=== PATIENT | male | born 1940 | race Caucasian/White ===

== ENCOUNTER 2016-11-25 13:07 | Inpatient (IN) | payer MEDICARE, BC ==
[~2016-11-25] VITALS: Ht 182.9 cm; Wt 73.2 kg
--- NOTE | ~2016-11-25 | ECHO ---
Transthoracic Echocardiography Report (TTE) Demographics Patient Name GAL TOLEDO Date of Study 11/26/2016 Patient Number [id number] Visit Number [id number] Date of 1940 Room Number G6229 Accession Number [id number] Gender Male Age 76 year(s) Referring Nupur Queen MD Dinkey Engineer Jaylin Lopez [facility], Physician RVT Physician Interpreting Gage Horvath Keeper Head Physician Supervising Ordering Physician Nupur Crews MD/MLP Nurse Stress Game Show Host Conclusions Contractility Score Summary At rest the following contractility abnormalities were noted: Hypokinesis of the Mid anterior, the Mid lainey-septal, the Basal lainey-septal, the Apical anterior and the Apical cap segments. Contractility of all other segments appeared normal. Summary The estimated left ventricular ejection fraction is 45-50% with normal internal dimensions and wall thickness.Septum is thinned and severely hypokinetic. Mildly dilated right ventricle. The right atrium is mildly dilated. Mild mitral regurgitation by color Doppler. The aortic valve is moderately sclerotic. There is trivial aortic regurgitation by color Doppler. Mild-moderate tricuspid regurgitation by color Doppler. There is moderate pulmonary hypertension. The pulmonary pressure (RVSP) is 49 mmHg. Mild pulmonic valve regurgitation by color Doppler. The pulmonic valve is not well visualized. Procedure Type of Study TTE procedure:2D Echocardiogram. Procedure Date Date: 11/26/2016 Start: 06:51 AM Study Location: Inpatient Portable Technical Quality: Fair due to lung interference. Indications:Acute Heart Failure. Appropriate Use Criteria: 9 Patient Status: Routine Rhythm: Sinus tachycardia HR: 100 bpm BP: 133/61 mmHg M-Mode/2D Measurements LV Diastolic Dimension: 5.2 cm LV Systolic Dimension: 4.28 cm LV Septum Diastolic: 0.87 cm LV Septum Systolic: 5.33 cm LV PW Diastolic: 0.99 cm AO Root Dimension: 1.8 cm Cardiac Output: 8.14 l/min LA Dimension: 3.9 cm LVOT: 2.1 cm IVC Inspiration: 1.23 cm LVOT VTI: 23.5 cm RV Base: 4.47 cm LV Stroke volume: 81.35 ml RV Length: 7.88 cm TAPSE: 2.03 cm Doppler Measurements AV Peak Velocity: 1.93 m/s MV Peak E-Wave: 1.12 m/s AV Peak Gradient: 14.9 mmHg MV Peak A-Wave: 1.36 m/s AV Mean Gradient: 6 mmHg MV E/A Ratio: 0.82 LVOT Peak Velocity: 1.34 m/s MV P1/2t: 60 msec TR Gradient:46.51 mmHg Estimated RAP:3 mmHg Estimated PASP: 49.51 mmHg Estimated RVSP: 50 mmHg A' Septal Velocity: 0.12 m/s E' Septal Velocity: 0.08 m/s A' Lateral Velocity: 0.13 m/s E' Lateral Velocity: 0.06 m/s MV E/E' Ratio: 13.6 Findings Left Ventricle The estimated left ventricular ejection fraction is 45-50% with normal internal dimensions and wall thickness.Septum appears thinned and severely hypokinetic. Right Ventricle Mildly dilated right ventricle. Left Atrium Normal left atrial size. Right Atrium The right atrium is mildly dilated. Mitral Valve Mild mitral regurgitation by color Doppler. Aortic Valve The aortic valve is moderately sclerotic. There is trivial aortic regurgitation by color Doppler. Tricuspid Valve Mild-moderate tricuspid regurgitation by color Doppler. There is moderate pulmonary hypertension. The pulmonary pressure (RVSP) is 49 mmHg. Pulmonic Valve Mild pulmonic valve regurgitation by color Doppler. The pulmonic valve is not well visualized. Pericardial Effusion No evidence of pericardial effusion. Miscellaneous Visualized portions of the aortic root and ascending aorta appear normal in size. Pleural Effusion No evidence of pleural effusion. Contractility Score LV regional wall motion:(0-Non visualized 1-Normal 2-Hypokinesis 3-Akinesis 4-Dyskinesis 5-Aneurysm) Signature dtt: Yuliet Almonte dtd: 11/26/16 0651 Physician Self Edit
--- NOTE | ~2016-11-25 | ECHO ---
Transesophageal Echocardiography Report (JETT) Demographics Patient Name GAL TOLEDO Date of Study 11/30/2016 Patient Number [id number] Visit Number [id number] Date of 1940 Room Number [id number] Gender Male Number Age 76 year(s) Referring [facility] Pediatric Surgeon Tonja Edwards RVT, Physician Cecille [facility] Barkot Physician Interpreting Neto Hunter Oral Therapist Physician Supervising Ordering Neto Hunter MD/MLP Physician Nurse Stress Manager Car Conclusions Summary The left ventricle is normal in size . LV systolic function could not be accurately determined as the patient had tachycardia during the study with ventricular rate of 130-140 bpm. Moderately dilated right ventricle. Moderately reduced right ventricular function. There is no obvious LA or LA appendage thrombus or spontaneous contrast. Bubble study was done, rare bubbles crossed to the left atrium suggesting a possible PFO. The right atrium is moderately dilated. Normal mitral valve structure and function. Mild-moderate mitral regurgitation by color Doppler. The aortic valve is mildly sclerotic. Normal appearing tricuspid valve. Mild tricuspid regurgitation by color Doppler. Minimal thoracic aorta plaque. Procedure Type of Study JETT procedure Procedure Date Date: 11/30/2016 Start: 09:40 AM Study Location: Inpatient Portable Technical Quality: Adequate visualization Indications:Atrial fibrillation. Appropriate Use Criteria: 8 Patient Status: Routine Rhythm: Atrial flutter HR: 126 bpm BP: 157/67 mmHg JETT Performed By: the attending and the brokerage office manager Findings Left Ventricle The left ventricle is normal in size . LV systolic function could not be accurately determined as the patient had tachycardia during the study with ventricular rate of 130-140 bpm. Right Ventricle Moderately dilated right ventricle. Moderately reduced right ventricular function. Left Atrium There is no obvious LA or LA appendage thrombus or spontaneous contrast. Bubble study was done, rare bubbles crossed to the left atrium suggesting a possible PFO. Right Atrium The right atrium is moderately dilated. Mitral Valve Normal mitral valve structure and function. Mild-moderate mitral regurgitation by color Doppler. Aortic Valve The aortic valve is mildly sclerotic. Tricuspid Valve Normal appearing tricuspid valve. Mild tricuspid regurgitation by color Doppler. Pulmonic Valve The pulmonic valve is not well visualized. Miscellaneous Minimal thoracic aorta plaque. Signature dtt: EVELIA NELSON dtd: 11/30/16 0940 Physician Self Edit
--- NOTE | ~2016-11-25 | DS ---
PATIENT'S NAME: GAL TOLEDO [facility] AGE: 76 Y [address] ROOM: [id number] [place] [address] LOCATION: GPCU ADMIT DATE: 11/25/2016 Discharge Summary DISCHARGE DATE: 12/05/2016 FAMILY PHYSICIAN: Lona Mills MD ATTENDING PHYSICIAN: Juan José Fulton FINAL DIAGNOSES: 1. Septic shock. 2. Left lower lobe pneumonia. 3. Atrial fibrillation with rapid ventricular response. 4. Acute hypoxic respiratory failure. 5. Non-ST elevation myocardial infarction with 3-vessel coronary artery disease. 6. Diabetes mellitus, type 2, insulin using. 7. Acute systolic congestive heart failure. 8. Essential hypertension. 9. Dyslipidemia. PROCEDURE: DC cardioversion on November 30, JETT on November 30, and heart catheterization on December 04, all by Dr. Duque. BRIEF HISTORY: For details of admission, please see the fully dictated history and physical by Dr. Fulton. In short, the patient was accepted and found to have a septic shock. He had presented the day prior with increasing cough, weakness, and fever. On arrival here, it was felt that he had a left lower lobe pneumonia and he was septic, he was admitted into the intensive care unit. LABORATORY DATA: On admission, sodium 136, remained stable at discharge 134; potassium on admission was 4.4, got as high as 5.2 on the 10th, as low as 3.4 on the 15th, at discharge 5.1; chloride on admission was 103, discharge 104; BUN on admission was 27, remained relatively stable, was 24 at discharge; creatinine on admission was 1.6, did decline in the first 2 days of admission, most prior to discharge it was 0.8. His AST on admission was 16 and bumped up to 440, most prior to discharge 29; ALT on admission was 15, jumped up to 232, most prior to discharge it was 80; cholesterol was 95; triglycerides 107; HDL 25; LDL 49. Troponin on admission was 1.8, second hospital day 0.73. ProBNP on admission was 8365. Hemoglobin A1c was 8.6. White blood cell count on admission was 16.1, got as high as 19.3, at discharge 13.8; hemoglobin on admission was 11.2, did drop to 9.8, and most prior to discharge it was 12; platelet count on admission was 212, remained stable, was 390 at discharge. Procalcitonin on admission was 28.94, on the 27 of November it was 16.09. MICROBIOLOGY DATA: All cultures were negative. PATIENT'S NAME: GAL TOLEDO [facility] AGE: 76 Y [address] ROOM: [place] [address] LOCATION: GPCU ADMIT DATE: 11/25/2016 Discharge Summary DISCHARGE DATE: 12/05/2016 FAMILY PHYSICIAN: Lona Mills MD ATTENDING PHYSICIAN: Juan José Fulton X-RAY DATA: Chest x-ray on admission showed that he had diffuse reticular opacity in both lungs, it was worse in the mid and lower sections and worse on the left. He had pleural thickening. On the second hospital day, the chest x- ray did show some worsening. On the , the chest x-ray did show improvement, there was improvement in the left lower lobe pneumonia. Chest x- ray done on the day of discharge showed that the consolidation was markedly improved and that he did have chronic emphysema and fibrotic changes and question whether this is the picture consistent with asbestos exposure. CARDIOVASCULAR DATA: Echocardiogram done on admission showed his ejection fraction to be 45-50%. He had mildly dilated right ventricle, moderate pulmonary hypertension. JETT done by Dr. Duque did not show any left atrial appendage clot. HOSPITAL COURSE: The patient was admitted from [facility] with a diagnosis of septic shock. He did have a left lower lobe pneumonia. The patient was admitted into an intensive care unit. He was started on vancomycin, Levaquin, and Zosyn. He was given Levophed for blood pressure support and was given IV fluid boluses. His ABGs were monitored. It was felt that he was acidotic. His lactate was significantly elevated. An echocardiogram was obtained. His lactates were elevated and they were followed closely. He also was found to have an acute hypoxic respiratory failure, he did require oxygen. He did have acute kidney injury, which did improve with IV hydration. It was felt that he was stable for discharge and he was able to be discharged out of the intensive care unit. He did go into atrial fibrillation with a rapid ventricular response on November 27. At that time, he was covered with Eliquis and given doses of Lopressor, Cardiology was consulted at that time. They did put him on a Cardizem drip and increased his oral metoprolol doses. It was also felt that he needed fasting lipids, there was some concern because of his cardiac enzymes being elevated that he did in fact have a non-STEMI. He was taken off the Eliquis and put on Lopressor. Adjustments were made in his medications to try and control his blood sugars. His heart rates were very difficult to control and did not come under control. The decision was made to do a JETT on the morning of the and then cardiovert him if possible. The JETT did not show any left atrial clot and therefore he was cardioverted. He was still requiring 2 L of oxygen. It was felt that he had significant degree of congestive heart failure and was started on IV Lasix. Carb count with meals was added. The decision was made that he did need to have a heart catheterization. We did work to optimize him. He responded very nicely to the diuretic. We did start him on potassium. His antibiotic was converted to oral Levaquin. He progressed nicely, his oxygen was weaning, and he was having significant urine output. We did make adjustments in his diabetic medications. He did undergo a heart catheterization on the , it did show that he had triple-vessel disease, please see Dr. Duque's catheterization note for full details. The patient was seen by Dr. Valdovinos for cardiothoracic PATIENT'S NAME: GAL TOLEDO [facility] AGE: 76 Y [address] ROOM: [place] [address] LOCATION: GPCU ADMIT DATE: 11/25/2016 Discharge Summary DISCHARGE DATE: 12/05/2016 FAMILY PHYSICIAN: oLna Mills MD ATTENDING PHYSICIAN: Juan José Fulton consult, at that time Dr. Valdovinos felt that he needed to be optimized. A CT scan was done of the chest to evaluate because of the concern of fibrosis. This was done on the day of discharge. It was felt that the patient was stable for discharge and could be discharged to home with followup. He is to have a diabetic diet. 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 Arrangements were made for appointment with Dr. Caputo, Dr. Duque, and Dr. Lona Mills in [place]. Those appointments will be made by the nurse coordinator for the hospitalist program and called to the family on Wednesday. He is advised to check his sugars 4 times daily. DISCHARGE MEDICATIONS: 1. Aspirin 81 mg daily. 2. NovoLog mild sliding scale. 3. Insulin 40 units subcutaneous at bedtime. 4. Levaquin 750 mg, stop date December 08. 5. Prinivil 10 mg at bedtime. 6. Magnesium oxide 400 mg twice daily. 7. Lopressor 50 mg twice daily. 8. Calcium 500 mg twice daily. 9. Glucophage 1000 mg twice daily. 10. Simvastatin 10 mg. 11. NovoLog 10 units subcutaneous 3 times daily with meals. 12. Nitrostat 0.4 mg sublingual, chest pain, may repeat q.5 minutes for a total of 3, if he takes 30, he is advised to go to the ER. I did spend a significant amount of time discussing with him and his , talked about diabetic diet. We did also talk with him about possibly getting in with a personal development educator in [place]. JESSICA YEPEZ MD LAW/modl /[id number] d: 12/05/162038 t: 12/06/161626, DISCHARGE SUMMARY
--- NOTE | ~2016-11-25 | OR ---
PATIENT'S NAME: GAL TOLEDO [facility] AGE: 76 Y [address] ROOM: [address] [address] LOCATION: CU ADMIT DATE: 11/25/2016 OR/Procedure Report DISCHARGE DATE: FAMILY PHYSICIAN: Lona Mills MD ATTENDING PHYSICIAN: Juan José Fulton SURGEON: Elsa Duque MD PROTECTION AGENT: DATE OF PROCEDURE: 11/30/2016 PROCEDURE: JETT cardioversion. INDICATION: Atrial flutter with rapid ventricular rate. The procedure was described to the patient and family and informed consent was obtained. DESCRIPTION OF PROCEDURE: The JETT was performed under general anesthesia. No obvious left atrial appendage thrombus was seen. The patient was then cardioverted using 100 joules of DC shock in the anterior posterior defibrillator pad position with one single shock. His heart rate was about 140 beats per minute with the atrial flutter prior to cardioversion and post cardioversion, his heart rate was 90 beats per minute. His blood pressure was 92/60 mmHg. The patient tolerated the procedure well. No immediate complication was seen. The JETT findings will be reported separately. MD MACKENZIE COLVIN/quyen /[id number] d: 11/30/16 1140 t: 12/10/16 1039, OPERATIVE SUMMARY
--- NOTE | ~2016-11-25 | HP ---
PATIENT'S NAME: GAL TOLEDO [facility] AGE: 76 Y [address] ROOM: [place] [address] LOCATION: [facility] ADMIT DATE: 11/25/2016 History & Physical DISCHARGE DATE: FAMILY PHYSICIAN: PHYSICIAN, UNKNOWN ATTENDING PHYSICIAN: DIONI DEMARCO DATE OF SERVICE: CHIEF COMPLAINT: Severe sepsis with shock, pneumonia. HISTORY OF RESENT ILLNESS: This is a 76-year-old male with history of diabetes, who presented to the emergency room at [place] yesterday and was subsequently admitted after he presented there with a few days history of complaints of increasing cough, generalized weakness, and fever. The patient was subsequently evaluated, and he was noted to have pneumonia and was admitted there. The patient this morning upon evaluation by the rounding physician was found to be hypertensive and decompensating and was subsequently transferred here for escalation of care. The patient tells me that he had not been feeling well for the past week or so, where he thought he had flu-like symptoms and had a cough that was initially dry and later it became productions of yellow-green sputum. He also complained of subjective and objective fever at the same time as well. Also, complained of some nausea and diarrhea with this. Also, complains of some dizziness and lightheadedness when he was getting up from a seated position, but that felt better when lying down. The patient, otherwise, denies any chest pain and significant shortness of breath that are related to this. PAST MEDICAL HISTORY: 1. Type 2 diabetes. 2. Hypertension. 3. Hyperlipidemia. SOCIAL HISTORY: The patient has a remote history of smoking and has quit in 2004. Denies any alcohol or drug use. FAMILY HISTORY: The patient has a history of diabetes in his parents and brothers. REVIEW OF SYSTEMS: All systems have been reviewed and were all negative, except as described in the HPI. PHYSICAL EXAMINATION: PATIENT'S NAME: GAL TOLEDO [facility] AGE: 76 Y [address] ROOM: [place] [address] LOCATION: [facility] ADMIT DATE: 11/25/2016 History & Physical DISCHARGE DATE: FAMILY PHYSICIAN: PHYSICIAN, UNKNOWN ATTENDING PHYSICIAN: DIONI DEMARCO VITAL SIGNS: Temperature max of 103, blood pressure 94/43, heart rate 70, respiratory rate 18, saturating 92% on 3 L of oxygen. GENERAL: The patient is awake, alert, and oriented x3; in mild distress and lethargic. HEENT: Dry mucosal membranes, but no scleral icterus or conjunctival pallor noted. SKIN: Without rash or lesions. CHEST: Diminished breath sounds in the left lower lobe. Mild rhonchi in that region as well. HEART: S1, S2. Regular rate and rhythm. ABDOMEN: Soft, nontender, and nondistended with positive bowel sounds. MUSCULOSKELETAL: No joint effusions, erythema, or tenderness noted NEUROLOGIC: Grossly nonfocal. LABORATORY DATA: Significant labs from outside hospital: White count of 13,000. ASSESSMENT AND PLAN: 1. Severe sepsis or shock, secondary to pneumonia. The patient is from the community. We will cover with broad-spectrum antibiotics with vancomycin, Levaquin, and Zosyn. He does have some gastrointestinal symptoms. We will check for even Legionella and check for MRSA in nares to help narrow antibiotics going forward once we get sputum culture as well. The patient had received 2 L of saline boluses on his way here, I am giving him a third liter which would be equivalent to 30 mL/kg for initial volume resuscitation. We will get a repeat lactate level in 3 hours and re-assess the patient's volume status as well. The patient is on Levophed at 0.5 mg, and we will continue with fluid boluses and resuscitation and slowly wean Levophed off in the coming days. 2. Pneumonia, bacterial, organism unspecified. Management as above with broad-spectrum antibiotics, and we will continue to monitor clinically. 3. Acute respiratory failure with hypoxia. This is due to his pneumonia as well and management is as described above. 4. Acute kidney injury. This is related to sepsis picture as well. We will go ahead and manage with fluid resuscitation and keep an eye on urine output and kidney function overall. 5. Type 2 diabetes. The patient is on metformin at home. We will hold this and use sliding scale insulin, and he will be monitored. 6. Essential hypertension. The patient is on lisinopril. We will hold blood pressure lowering medications in the setting of a sepsis picture at this point. 7. Hyperlipidemia. Continue statin therapy. 8. Deep venous thrombosis prophylaxis. We will use subcu heparin. PATIENT'S NAME: GAL TOLEDO [facility] AGE: 76 Y [address] ROOM: [address] [address] LOCATION: [facility] ADMIT DATE: 11/25/2016 History & Physical DISCHARGE DATE: FAMILY PHYSICIAN: PHYSICIAN, CHARLINE ATTENDING PHYSICIAN: DIONI DEMARCO MD YANNICK PERDUE/quyen /[id number]: [id number] T: [id number] HISTORY & PHYSICAL
--- NOTE | ~2016-11-25 | CON ---
PATIENT'S NAME: GAL TOLEDO [facility] AGE: 76 Y [address] ROOM: [place] [address] LOCATION: GPCU ADMIT DATE: 11/25/2016 Consultation DISCHARGE DATE: 12/05/2016 FAMILY PHYSICIAN: Lona Mills MD ATTENDING PHYSICIAN: Juan José Fulton DATE OF CONSULTATION: 12/04/2016 REFERRING PHYSICIAN: Johnny Valdovinos MD REQUESTING PHYSICIAN: Dr. Duque. REASON FOR CONSULTATION: Multivessel coronary artery disease. HISTORY OF PRESENT ILLNESS: The patient is a 76-year-old white male, from [place], [place] who was transferred here for a higher level of care and admitted with septic shock, acute hypoxic respiratory failure with findings of a left lower lobe pneumonia. He was placed in the ICU. He was stabilized hemodynamically and was placed on a Levophed drip. He had complications with atrial fibrillation with rapid ventricular response. He was seen by Cardiology as well. Further cardiac workup revealed a non-STEMI. The patient underwent a cardioversion on November 30, 2016. The patient further stabilized, having no more fever. The patient did have an echocardiogram with an ejection fraction noted to be at 40% to 45%. The patient did go down on December 04, [address] Duque for a left heart catheterization. Findings of the catheterization revealed no significant left main disease. To the LAD, proximal/mid portion an 80% to 90% diffuse stenosis. The diagonal of the ostial section at 80%. Circumflex proximally at 90%. First marginal, ostially 90% stenosed. To the right system, a mid 80% stenosis and a posterior lateral segment at 80%. Given this, cardiothoracic surgery has been consulted to speak with the patient and his family with regard to surgical revascularization. PAST MEDICAL HISTORY: Illnesses: Diabetes mellitus, dyslipidemia, hypertension, systolic congestive heart failure, peripheral vascular disease. Surgeries/Procedures: Right lower extremity bypass. ALLERGIES: NO KNOWN DRUG ALLERGIES. PATIENT'S NAME: PARIS [facility] AGE: 76 Y [address] ROOM: [place] [address] LOCATION: GPCU ADMIT DATE: 11/25/2016 Consultation DISCHARGE DATE: 12/05/2016 FAMILY PHYSICIAN: Lona Mills MD ATTENDING PHYSICIAN: Juan José Fulton SOCIAL HISTORY: The patient is . He and his reside in [place]. 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 He is a former long-standing smoker. Nonalcohol consumer. FAMILY HISTORY: His mother had history of diabetes. His father had history of diabetes. His daughter underwent a quadruple bypass here recently. CURRENT MEDICATIONS: 1. Metoprolol. 2. Ferrous sulfate. 3. Aspirin. 4. Nexium. 5. Insulin. 6. Simvastatin. 7. Vancomycin. 8. Zofran. 9. Zosyn. 10. Levaquin. REVIEW OF SYSTEMS: At this time, the 10-point review of systems is positive for ongoing back pain, intermittent shortness of breath, and hoarseness of his voice. PHYSICAL EXAMINATION: VITAL SIGNS: Blood pressure 120/59, pulse is 62, respirations 16, temp 98.5, O2 saturations 93% on room air. Weight is 73.2 kg. GENERAL: He is very pleasant. He is in no acute distress. HEENT: Normocephalic. EOMI is intact. He does have hoarseness to his voice. LUNGS: With fine crackles bilaterally, somewhat diminished. CARDIOVASCULAR: Irregular with normal sinus rhythm showing on the monitor. No murmur detected. ABDOMEN: Soft, nontender by 4 quadrants with positive bowel sounds throughout. EXTREMITIES: No overt varicosities or edema noted. He does have bilateral scarring to his lower extremities secondary to prior bypass surgery and retrieval of vein. MUSCULOSKELETAL: Good range of motion to bilateral upper and lower extremities. NEUROLOGIC: Alert and oriented. Strength is symmetrical. SKIN: No suspicious skin lesions. LABORATORY AND TEST RESULTS: His cardiac catheterization and echo are as per HPI. His CT on his admission PATIENT'S NAME: GAL TOLEDO [facility] AGE: 76 Y [address] ROOM: [facility] [place] [place] [address] LOCATION: GPCU ADMIT DATE: 11/25/2016 Consultation DISCHARGE DATE: 12/05/2016 FAMILY PHYSICIAN: Lona Mills MD ATTENDING PHYSICIAN: Juan José Fulton did show left lower lobe consolidation, chronic emphysematous and fibrotic changes. IMPRESSION: 1. Non-ST segment myocardial infarction. 2. Three-vessel coronary artery disease. 3. Left lower lobe pneumonia. 4. Acute kidney injury, resolving. 5. Peripheral vascular disease, status post right lower extremity bypass. 6. Chronic obstructive pulmonary disease/emphysema. 7. 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 8. Type 2 diabetes mellitus. 9. Hypertension. 10. Dyslipidemia. The cardiac catheterization was reviewed. The patient will require 3-4 vessel bypass. Given the patient's recent admission for sepsis with pneumonia and the severity of the patient's CT of the chest from pulmonary fibrotic changes, patient should be walked out for a period of time to optimize pulmonary status before going to surgery. This was discussed with the patient and his . Time frame for estimated surgery likely 4 weeks out, possibly 6. The patient is going to get a repeat CT scan of the chest tomorrow. He will likely be discharged from the hospital and will be seen in followup regarding timing of surgical revascularization surgery. We will plan for followup in approximately 1 week with Pulmonology, Cardiology, and Cardiothoracic Surgery. I would like to thank Dr. Duque for allowing us to participate in the care of this very pleasant gentleman. RANJIT SANDERS APRN FOR MD LIBERTAD MARIN/quyen /[id number] d: 12/08/16 1437 t: 12/09/16 0856, CONSULTATION REPORT
--- NOTE | ~2016-11-25 | CON ---
PATIENT'S NAME: GAL TOLEDO [facility] AGE: 76 Y [address] ROOM: [place] [address] LOCATION: GICU ADMIT DATE: 11/25/2016 Consultation DISCHARGE DATE: FAMILY PHYSICIAN: IVANIA ESTRADA MD ATTENDING PHYSICIAN: DIONI DEMARCO DATE OF CONSULTATION: 11/27/2016 CARDIOLOGY CONSULTATION REFERRING PHYSICIAN: Xiomara Wills MD REASON FOR CONSULTATION: Atrial fibrillation with a rapid ventricular rate and wall-motion abnormalities on echocardiogram. HISTORY OF PRESENT ILLNESS: Mr. Toledo is a pleasant 76-year-old male with history of diabetes who has been symptomatic since two days with complaints of fever. The patient started having flu-like symptoms on Wednesday evening that is two days ago and by midnight, on Wednesday, his temperature was up to 105, EMS was called, and he was taken to local hospital in [place], and subsequently transferred here for higher level of care. The patient has been having cough, generalized weakness, and nausea. He was found to have pneumonia and has been started on antibiotics. The patient had echocardiogram which reported ejection fraction of 40% to 45% with wall-motion abnormalities and was also noted to be in atrial fibrillation with a rapid ventricular rate. The patient denies any palpitations. REVIEW OF SYSTEMS: The patient denied any recent change in vision. History of nausea is present. No history of vomiting. History of fever is present. History of cough and shortness of breath is present. The patient stated he has chronic diarrhea and has been having diarrhea since he has been taking metformin. He also complained of leg pains and leg cramps off and on. Review of other systems is essentially negative. SOCIAL HISTORY: He quit smoking in 2004 and used to smoke about a pack of cigarettes a day. He is a rivas. FAMILY HISTORY: No family history of premature coronary artery disease. PATIENT'S NAME: GAL TOLEDO [facility] AGE: 76 Y [address] ROOM: [place] [address] LOCATION: GICU ADMIT DATE: 11/25/2016 Consultation DISCHARGE DATE: FAMILY PHYSICIAN: IVANIA ESTRADA MD ATTENDING PHYSICIAN: DIONI DEMARCO PAST MEDICAL HISTORY: 1. Diabetes. 2. Hypertension. 3. Hyperlipidemia. PAST SURGICAL HISTORY: The patient stated that he had bypass surgery in the right lower extremity. CURRENT MEDICATIONS: Include: 1. Metoprolol tartrate 25 mg b.i.d. 2. Ferrous sulfate. 3. Aspirin 81 mg daily. 4. Pantoprazole. 5. Insulin. 6. Simvastatin 10 mg at bedtime. 7. Vancomycin. 8. Ondansetron. 9. Piperacillin tazobactam. 10. Levofloxacin. PHYSICAL EXAMINATION: GENERAL APPEARANCE: He is awake, alert, and oriented. VITAL SIGNS: He pulse rate is 133 beats per minute, temperature 98.2, respiratory rate 21, and blood pressure 152/65 mmHg. HEENT: His head is atraumatic and normocephalic. His pupils are equal. His tongue is dry. No significant jugular venous distention is present. CARDIOVASCULAR: S1 and S2 are audible. They are irregular in rate and rhythm. Tachycardia is present. RESPIRATORY: Bilateral vesicular breath sounds are audible. Coarse crackles are audible in the left infra-axillary area and infrascapular area. GASTROINTESTINAL: Abdomen is soft, nontender. Bowel sounds are present. EXTREMITIES: Show no significant pedal edema. SKIN: Warm and dry. NEUROLOGIC: The patient is awake, alert, and oriented. LABORATORY DATA: Labs: Sodium 137, potassium 5.2, chloride 108, CO2 of 16, glucose 210, calcium 7.5, BUN 23, and creatinine 1.3. His creatinine at the time of admission was 1.6. AST 22, ALT 18. White blood cell count 16.8, hemoglobin 10.6, hematocrit 32.6, and platelet count 212,000. EKG showed atrial fibrillation with a rapid ventricular rate of 128 beats per minute, nonspecific ST-T wave changes. Chest x-ray reported diffuse reticular opacity in the parenchyma of both lungs. Greatest intensity and extent in the mid and lower portions of left lung. Pleural thickening of clear fluid was noted. PATIENT'S NAME: GAL TOLEDO [facility] AGE: 76 Y [address] ROOM: [id number] [place], [place] [address] LOCATION: [facility] ADMIT DATE: 11/25/2016 Consultation DISCHARGE DATE: FAMILY PHYSICIAN: IVANIA ESTRADA MD ATTENDING PHYSICIAN: DIONI DEMARCO Echocardiogram reported left ventricle ejection fraction of 45% to 50% with regional wall-motion abnormalities, moderate pulmonary hypertension with estimated RVSP of 49 mmHg, moderate aortic sclerosis, and severe hypokinesis of septum. ASSESSMENT AND PLAN: 1. Atrial fibrillation with a rapid ventricular rate. His atrial fibrillation could be precipitated by pneumonia and possible dehydration. Continue empiric antibiotics. We will hydrate the patient. We will increase the dose of metoprolol to 25 mg every 6 hours and titrate dose as needed for blood pressure and heart rate control. If the patient continues to remain tachycardic, we will consider addition of Cardizem drip. The patient is already initiated on anticoagulation with Eliquis. 2. Possible coronary artery disease. The patient has diminished left ventricular function and regional wall-motion abnormalities, and has coronary artery disease risk factors including history of smoking. We will consider further evaluation with a stress test/left heart catheterization after his ventricular rate is controlled and pneumonia is treated. 3. Hypertension. Continue metoprolol and titrate dose as needed. We will consider addition of further medications depending on blood pressure control. 4. Pneumonia. Management per hospitalist team. 5. Pulmonary hypertension. Likely due to chronic obstructive pulmonary disease. We will follow the patient along with you. Thank you, Dr. Wills, for having us in taking part in the care of this pleasant patient. MD MACKENZIE COLVIN/quyen /[id number] d: 11/27/16 1510 t: 12/10/16 1027, CONSULTATION REPORT
--- NOTE | ~2016-11-25 | CATH ---
Cardiac Diagnostic Report Demographics Patient Name PARIS Monroy Gender Male Date of 1940 Age 76 year(s) Patient Number [id number] Date of Study 12/04/2016 Visit Number [id number] Room Number G6[address] [place] [id number] Ht 182.88 cm Wt 87.09 kg Referring Lona Mills Primary Physician Physician Performing Neto Secondary Physician Physician Elsa Diagnostic Neto Assisting Physician Physician Elsa Interventional Physician Tax Clerk Physician Findings and Conclusions Diagnostic Findings and Conclusion L Main: No significant stenosis LAD: Proximal/mid 80-90% diffuse stenosis (after 1st major septal branch), mid 60-70% (after diagonal branch) Diagonal: ostial 80% CX: Proximal 90% diffuse OM1: Ostial 90% stenosis Ramus: Mild luminal irregularities RCA: mid 80% stenosis PLV: mid 80% stenosis Diagnostic Recommendations CT surgery consult for CABG. Notified Dr. Kay and Dr. Newby of the results. Procedure Description The patient was brought to the diagnostic cardiac catheterization-EP laboratory in the fasting, non-sedated state. Informed consent was obtained in the written and verbal form after the risks and benefits were explained. The patient had no further questions and agreed to proceed. The planned puncture-incision site(s) were shaved and prepped with ChloraPrep and draped in the usual sterile manner. Conscious sedation, supplemental oxygen, and pain control medications were delivered by a registered nurse under physician guidance. Surface ECG rhythm, blood pressure measurement, and pulse oximetry were monitored throughout the procedure. Arterial access. The rt femoral arterial access site was infiltrated with lidocaine. The vessel was entered with the Seldinger technique. A sheath was advanced into the vessel and used for catheter placement. Selective left coronary angiography. A catheter was advanced into the left coronary vessel ostium under Fluoroscopic guidance. Contrast was injected by hand. Images were obtained in multiple projections. Selective right coronary angiography. A catheter was advanced into the right coronary vessel ostium under fluoroscopic guidance. Contrast was injected by hand. Images were obtained in multiple projections. Left heart catheterization. A catheter was advanced across the aortic valve to the left ventricle under fluoroscopic guidance. Resting hemodynamics were obtained. Arterial artery hemostasis was achieved. The patient was transferred to a regular nursing floor via cart accompanied by a nurse. The patient left the laboratory in stable condition. Diagnostic Cath Status: Urgent Procedure Procedure Type Diagnostic procedure:Angiography:, Coronary Angios /[facility] Indications: Elevated troponin. The procedure was explained in detail to the patient. Risks, complications and alternative treatments were reviewed. Written consent was obtained. Medications Reviewed with Patient prior to Procedure. Angiographic Findings Dominance: Right Cardiac Arteries and Lesion Findings LMCA: Normal (0% Stenosis). LAD: Lesion on Prox LAD: 90% stenosis .The lesion was diffuse. Lesion on Mid LAD: 70% stenosis . Lesion on 1st Diag: Ostial.80% stenosis . LCx: Lesion on Prox CX: 90% stenosis .The lesion was diffuse. Lesion on 1st Ob Frances: Ostial.90% stenosis . RCA: Lesion on Mid RCA: 80% stenosis . Coronary Tree Procedure Data Procedure Date Date: 12/04/2016Start: 10:13 AMEnd: 11:31 AM Entry Locations - Retrograde Percutaneous access was performed through the Right Femoral artery (Primary location). A 6 Fr sheath was inserted. Hemostasis was successfully obtained using Manual Compression. Closure Comments: Manual pressure held by Nichole for 20 minutes.. Procedure Medications Order and Administration + + +-------+------+ !Time !Medication !Dosage !Route ! + + +-------+------+ !12/04/2016 10:09 AM !Versed !0.5 mg !I.V. ! + + +-------+------+ !12/04/2016 10:09 AM !Fentanyl !25 mcg !I.V. ! + + +-------+------+ Devices Used - A6 Fr. BS JL 4 Diag. Catheterwas used for:Left coronary angiography.Unable to cannulate the vessel. - A5 Fr. BS JR 4 Diag. Catheterwas used for:Right coronary angiography. - A5 Fr. BS JL 3.5 Diag. Catheterwas used for:Left coronary angiography. Contrast Material - Isovue 43695 ml Fluoroscopy Time: Diagnostic: 4:30 minutes. Total: 4:30 minutes. Fluoroscopy Dose: Diagnostic: 529 mGy. Total: 529 mGy. Estimated Blood Loss: 5 ml. Medical History Performed Procedures and Imaging Results - No ACC stress or imaging studies were performed. Allergies - No known allergies. Risk Factors The patient risk factors include:hypertension, family history of premature CAD, diabetes mellitus, last creatinine: 0.9 mg/dl, creatinine clearance: 86.02 ml/min, dyslipidemia and former tobacco use. Admission Data Admission Date: 11/25/2016 Admission Time: 01:07 PM Admit Source: Emergency department Insurance Payors: Medicare. Admission Medications + +------+------+ + + + + !Medication !Dosage!Times !Last !Last !Administered !Comments ! ! ! !Per !Delivery !Delivery ! ! ! ! ! !Day !Date !Time ! ! ! + +------+------+ + + + + !Aspirin ! ! ! ! !Yes ! ! !(any) ! ! ! ! ! ! ! + +------+------+ + + + + !TAMI ! ! ! ! !Yes ! ! !Inhibitor ! ! ! ! ! ! ! !(any) ! ! ! ! ! ! ! + +------+------+ + + + + !Statin (any)! ! ! ! !Yes ! ! + +------+------+ + + + + Clinical Evaluation Leading to Procedure - The patient's CAD presentation was assessed as: Non-STEMI. - There were no anginal symptoms. Hemodynamics Condition: Rest O2 Consumption: Estimated: 238.99Heart Rate: 69 bpm Pressures (mmHg) +-----+ + !Site !Pressure ! +-----+ + !AO !129/49 (78) ! +-----+ + !AO !134/44 (76) ! +-----+ + !LV !72/20 ,10 ! +-----+ + !AO !142/49 (83) ! +-----+ + Valve Gradients and Areas + +---------+---------+---------+ +---------+ + !Valve !Peak !Mean !Area !Index !Flow !Source ! + +---------+---------+---------+ +---------+ + !Aortic !4 !3 ! ! ! ! ! + +---------+---------+---------+ +---------+ + !Aortic !4 !3 ! ! ! ! ! + +---------+---------+---------+ +---------+ + Shunts Oxygen Values O2 Capacity 165.92 O2 Consumption 238.99 Signatures dtt: ELSA NELSON dtd: 12/04/16 1013 Physician Self Edit
[2016-11-25 16:39] LABS: BILIRUBIN URINE NEGATIVE (NEGATIVE); BLOOD URINE 10 /UL (NEGATIVE); COLOR URINE YELLOW (YELLOW); GLUCOSE URINE NEGATIVE (NEGATIVE); KETONE URINE NEGATIVE (NEGATIVE); LEUKOCYTES URINE NEGATIVE /UL (NEGATIVE); NITRITE URINE NEGATIVE (NEGATIVE); PROTEIN URINE 15 mg/dL (NEGATIVE); TURBIDITY URINE CLEAR (CLEAR); UROBILINOGEN URINE NORMAL (NORMAL)
[2016-11-25 16:46] LABS: BICARBONATE 17.4 mmol/L (18.0-23.0); PCO2 51 mmHg (35-45)
[2016-11-25 16:49] LABS: LACTATE 7.5 mEq/L (0.50-1.60); PO2 47 mmHg (80-90)
[2016-11-25 16:51] LABS: INR - (THERAPEUTIC) 1.23 (0.92-1.07); PROTIME 12.9 SECONDS (9.8-11.4)
[2016-11-25 17:02] LABS: BACTERIA URINE NEGATIVE (NEGATIVE); WBC URINE 0-2 #/HPF (NEGATIVE)
[2016-11-25 17:05] LABS: ALBUMIN 2.6 gm/dL (3.5-5.0); ANION GAP 19.4 (10.0-19.0); CALCIUM 7.4 mg/dL (8.5-10.5); CREATININE 1.6 mg/dL (0.6-1.3); POTASSIUM 4.4 mMol/L (3.7-5.1); TOTAL BILIRUBIN 0.7 mg/dL (0.0-1.5); TOTAL PROTEIN 5.7 g/dL (6.0-8.4)
--- NOTE | 2016-11-25 17:34 | NUR ---
Significant Event: Patient is A&O X3, follows all commands, Pupils are equal and reactive. SBP have been upper 80's-130's, MAP's 58's-70's, LEVO is running at 0.07mcg/kg/min. Patient has been in SR with HR 70's-80's. Patient is on 3L NC with o2 sats low 90's. Lung sounds are coarse with crackles. Knox was placed at 1600. Gave 3L NS bolus total. Follow up:
[2016-11-25 17:44] LABS: BICARBONATE 14.2 mmol/L (18.0-23.0); PCO2 31 mmHg (35-45); PO2 61 mmHg (80-90)
[2016-11-25 21:58] LABS: BICARBONATE 13.2 mmol/L (18.0-23.0); PCO2 30 mmHg (35-45); PO2 51 mmHg (80-90)
[2016-11-25 23:01] LABS: HEMATOCRIT 34.7 % (37.0-53.0); HEMOGLOBIN 11.2 g/dL (11.0-16.0); MCH 29.8 pg (27.0-34.0); MCHC 32.3 gm/dL (32.0-36.5); MCV 92.3 fl (83.0-98.0); MPV 10.7 fl (9.4-12.4); PLATELET COUNT 212 K/uL (150-450); RBC 3.76 M/uL (3.50-5.50)
[2016-11-25 23:08] LABS: WBC 16.1 K/uL (4.0-11.0)
[2016-11-25 23:17] LABS: ALBUMIN 2.5 gm/dL (3.5-5.0); CREATININE 1.4 mg/dL (0.6-1.3); POTASSIUM 5.2 mMol/L (3.7-5.1); TOTAL PROTEIN 6.4 g/dL (6.0-8.4)
[2016-11-25 23:18] LABS: ANION GAP 19.2 (10.0-19.0); CALCIUM 7.4 mg/dL (8.5-10.5); TOTAL BILIRUBIN 0.4 mg/dL (0.0-1.5)
[2016-11-25 23:47] LABS: BICARBONATE 14.4 mmol/L (18.0-23.0); PCO2 28 mmHg (35-45)
[2016-11-25 23:48] LABS: PO2 78 mmHg (80-90)
[2016-11-26 00:15] LABS: ABSOLUTE NEUTROPHIL CT (ANC) 12.6 K/uL (1.4-9.0); BANDED NEUTROPHIL # 9.8 K/uL (0.0-0.1); BANDED NEUTROPHILS % 61 %; LYMPHOCYTE # 1.3 K/uL (0.8-4.0); LYMPHOCYTE % 8 %; MONOCYTE # 1.1 K/uL (0.0-1.0); SEGMENTED NEUTROPHIL # 2.7 K/uL (1.4-9.0); SEGMENTED NEUTROPHIL % 17 %
[2016-11-26 04:13] LABS: ANION GAP 18.2 (10.0-19.0); CALCIUM 7.5 mg/dL (8.5-10.5); CREATININE 1.3 mg/dL (0.6-1.3); POTASSIUM 5.2 mMol/L (3.7-5.1)
--- NOTE | 2016-11-26 04:51 | NUR ---
Significant Event: AOX3. BEGINNING OF SHIFT, ON 0.O5 OF LEVO. TITRATED LEVO DOWN, OFF BY 2199. 0 INCREASED IN O2 DEMAND, SOB, TACHYCARDIC, INCREASE IN BP, NAUSEA. 2200 BIPAP INITIATED, LACTIC ACID 8.2. 0000 LACTIC ACID 6.8, PT RESTING COMFORTABLY ON BIPAP, HR LOW 100s. 0400 LACTIC ACID 5.9. LUNGS CRACKLES THROUGHOUT. CXR DONE AT 0. BIPAP CURRENTLY AT 30% FiO2. MENDEZ INTACT, 1900 OUT. NO SKIN ISSUES. DID HAVE SOME NAUSEA DURING SHIFT. EMESIS X2. ZOFRAN GIVEN. REGULAR DIET. IV TO R)FA SL. IV TO L)FA SL. INTERMITTENT ANTIBIOTICS. ACHS ACCUCHECKS. LEVO TO KEEP MAPS >70. Follow up:
[2016-11-26 11:46] LABS: HEMATOCRIT 32.9 % (37.0-53.0); HEMOGLOBIN 10.8 g/dL (11.0-16.0); MCH 29.5 pg (27.0-34.0); MCHC 32.8 gm/dL (32.0-36.5); MCV 89.9 fl (83.0-98.0); MPV 10.5 fl (9.4-12.4); PLATELET COUNT 197 K/uL (150-450); RBC 3.66 M/uL (3.50-5.50)
[2016-11-26 11:48] LABS: WBC 18.2 K/uL (4.0-11.0)
[2016-11-26 12:29] LABS: ABSOLUTE NEUTROPHIL CT (ANC) 14.6 K/uL (1.4-9.0); BANDED NEUTROPHIL # 10.6 K/uL (0.0-0.1); BANDED NEUTROPHILS % 58 %; LYMPHOCYTE # 1.1 K/uL (0.8-4.0); LYMPHOCYTE % 6 %; MONOCYTE # 1.1 K/uL (0.0-1.0); SEGMENTED NEUTROPHIL % 22 %
--- NOTE | 2016-11-26 14:16 | NUR ---
(-)MST; WT LOSS OCCURRED OVER 2 YEARS AGO. WT HAS BEEN STABLE FOR THE PAST YEAR OR SO, PER PT REPORT. PRIOR TO BECOMING ILL, APPETITE AND ORAL INTAKE WERE GOOD. PT IS TAKING IT SLOW WITH PO INTAKE D/T RECENT N/V. WILL ASSIST NEEDED.
--- NOTE | 2016-11-26 15:40 | NUR ---
Significant Event: PT ALERT AND ORIENTED X3. NEURO INTACT. VITAL SIGNS STABLE. BIPAP D/C'D AT 1030; O2 AT 2 LITERS PER NASAL; 02 SATS HAVE BEEN IN THE LOWER 90'S. DOES GET SHORT OF BREATH WITH MINIMAL ACTIVITY. BP'S HAVE BEEN STABLE AND MAP HAS BEEN GREATER THAN 70 ALL SHIFT. TACHYCARDIA AT TIMES WITH RATES IN THE LOW 100'S. ECHO DONE THIS AM. CRACKLES NOTED TO L)LOBES; DIMINISHED IN R)LOBES. MENDEZ PATENT, DRAINING YELLOW URINE. BOWEL SOUNDS HYPOACTIVE. DECREASED APPETITE. XL FORMED BM PER COMMODE THIS AFTERNOON. PIV'S X2; INTERMITTENT ANTIBIOTICS. DENIES ANY PAIN. IV ZOFRAN GIVEN AT 0749 FOR COMPLAINTS OF NAUSEA; NO EMESIS NOTED. DOES HAVE PRODUCTIVE COUGH AT TIMES WITH THICK, BROWN SPUTUM NOTED. AC/HS ACCUCHECKS. BAG BATH GIVEN THIS AFTERNOON. MAY BE UP TOLERATED; TRANSFERS WITH 1-2 ASSIST/GAIT BELT. HS BEEN AT BEDSIDE ALL SHIFT. Follow up: CONTINUE TO MONITOR
[2016-11-26] MEDS ORDERED: LANTUS (IN100 UNIT/M SUB-Q (16:07)
[2016-11-26] MEDS ORDERED: NOVOLOG100 UNIT/M SUB-Q (16:09)
[2016-11-26] MEDS ORDERED: ZOCOR10 MG PO (16:11)
[2016-11-26] MEDS ORDERED: GLUCOPHAGE1000 MG PO (16:11)
[2016-11-26] MEDS ORDERED: PRINIVIL OR ZES10 MG PO (16:11)
[2016-11-26] MEDS ORDERED: MAG-OX-400(241400 MG PO (16:12)
[2016-11-26] MEDS ORDERED: OSCAL + D500 MG PO (16:12)
[2016-11-26] MEDS ORDERED: ASPIRIN LO-DOSE81 MG PO (16:12)
[2016-11-26] MEDS ORDERED: FEOSOL325 MG PO (16:12)
[2016-11-27 05:12] LABS: HEMATOCRIT 32.6 % (37.0-53.0); HEMOGLOBIN 10.6 g/dL (11.0-16.0); MCH 29.4 pg (27.0-34.0); MCHC 32.5 gm/dL (32.0-36.5); MCV 90.3 fl (83.0-98.0); MPV 10.8 fl (9.4-12.4); PLATELET COUNT 212 K/uL (150-450); RBC 3.61 M/uL (3.50-5.50); RDW-CV 14.1 % (11.9-14.6); WBC 16.8 K/uL (4.0-11.0)
--- NOTE | 2016-11-27 05:14 | NUR ---
Significant Event: A0X3 FORGETFUL AT TIMES. VSS. RR RANGES FROM 18-24. AFEBRILE. KEEP MAP >70. 02 2L DURING DAY, BIPAP WHEN SLEEPING. MENDEZ INTACT, 1250 OUT. INCONTINENT OF STOOL AT TIMES. LUNGS FINE CRACKLES. PRODUCTIVE COUGH. C-DIFF SAMPLE NEGATIVE THIS SHIFT. ACCUCHECKS Q6H. NO PAIN. IV TO L)FA CURRENTLY RUNNING ZOSYN. IV TO R)FA SL. ENCOURAGE PO INTAKE. Follow up:
[2016-11-27 06:12] LABS: ABSOLUTE NEUTROPHIL CT (ANC) 13.9 K/uL (1.4-9.0); BANDED NEUTROPHIL # 9.7 K/uL (0.0-0.1); BANDED NEUTROPHILS % 58 %; LYMPHOCYTE # 1.2 K/uL (0.8-4.0); LYMPHOCYTE % 7 %; MONOCYTE # 1.5 K/uL (0.0-1.0); SEGMENTED NEUTROPHIL # 4.2 K/uL (1.4-9.0); SEGMENTED NEUTROPHIL % 25 %
--- NOTE | 2016-11-27 10:04 | NUR ---
3805 DEENA CALLED ABOUT PROCAL @ 16.09
--- NOTE | 2016-11-27 10:04 | NUR ---
0837 EKG ORDERED BY MD SHAFFER/ORDER IN AND RESPIRATORY NOTIFIED
--- NOTE | 2016-11-27 13:34 | NUR ---
Introduced self and care management services to patient and at bedside. Lives in [place]. He plans to go home on discharge, he and deny concerns about him going home on discharge, deny needs. She will assist him as needed at home. Fusing Line Inspector will follow and assist with dc planning as needs identified.
--- NOTE | 2016-11-27 16:42 | NUR ---
1515 MD NELSON NOTIFIED OF TROPONIN LEVEL OF 1.8
--- NOTE | 2016-11-27 17:30 | NUR ---
PATIENT IS AAOX3. HE FOLLOWS COMMANDS AND MOVES ALL EXTREMITIES. HE HAS CHRONIC NEROPATHY IN HIS FINGERS AND FEET. HE STILL GOES TO WORK EVERYDAY AND HIS SAYS HE KIND OF WALKS IN A CLUMP CLUMP TYPE OF FASHION. PT/OT WOULD LIKE TO START WORKING WITH HIM TOMORROW. HE IS ON 1L NC. HE HAS BEEN VERY RESTLESS TODAY BUT WE FINALLY GOT HIM UP INTO THE CHAIR AND HE'S STRETCHED OUT AND MORE COMFORTABLE. HE IS ON A REGULAR DIET BUT HASN'T HAD A HUGE APPETITE. THIS MORNING WHILE EATING HIS EGGS HE BEGAN TO COUGH VIOLENTLY TO WHERE HE ALMOST THREW UP. AFTER THIS EPISODE, A HEART RHYTHM CHANGE WAS NOTED AND MD WAS NOTIFIED. AN EKG WAS COMPLETED AND A CARDIOLOGY CONSULT WAS ORDERED. PATIENT WAS PUT ON A CARDIZEM GTT. VS HAVE BEEN STABLE ALL AFTERNOON. PATIENT STILLS HAS PRODUCTIVE COUGH BUT NOT MUCH BROWN MUCUS COUGHED UP THIS AFTERNOON WAS THIS MORNING. PATIENT HAS BEEN AFEBRILE WITH SYSTOLIC NUMBERS BETWEEN 96-115 SINCE DRIP BEGAN AND HEART RATES UNDER 100. PATIENT STILL HAS MENDEZ AND DID NOT HAVE A BOWEL MOVEMENT TODAY (11/26).
[2016-11-28 04:07] LABS: HEMATOCRIT 30.3 % (37.0-53.0); HEMOGLOBIN 9.8 g/dL (11.0-16.0); MCH 29.1 pg (27.0-34.0); MCHC 32.3 gm/dL (32.0-36.5); MCV 89.9 fl (83.0-98.0); MPV 10.5 fl (9.4-12.4); PLATELET COUNT 208 K/uL (150-450); RBC 3.37 M/uL (3.50-5.50); RDW-CV 14.2 % (11.9-14.6)
[2016-11-28 04:21] LABS: WBC 19.3 K/uL (4.0-11.0)
[2016-11-28 04:40] LABS: TOTAL BILIRUBIN 0.4 mg/dL (0.0-1.5); TOTAL PROTEIN 6.1 g/dL (6.0-8.4)
[2016-11-28 04:45] LABS: ANION GAP 13.2 (10.0-19.0); CALCIUM 7.7 mg/dL (8.5-10.5); POTASSIUM 4.2 mMol/L (3.7-5.1)
--- NOTE | 2016-11-28 05:08 | NUR ---
Significant Event: Patient is alert and oriented x 3. Denies pain, numbness, or tingling. Moves spontaneously and follows commands with generalized weakness. Pulses palpable. PERRLA. Continues in afib but shut off Cardizem gtt on first assessment--1913. Rates < 100. VSS. Afebrile. On 1L O2 via NC. LLE coarse, other lobes clear/diminished. Olmos intact draining yellow urine without complications. Bowel sounds active. No BM this shift. Decreased appetite. Regular diet. ACHS accucheks with mild SSI. PIV to left and right forearm SL with intermittent antibiotics. SCDs in place. Productive, loose cough at times. at bedside. Uses call light appropriately. Repositions self in bed. Scattered bruises. 1-2 PA, gait belt, walker. Follow up: monitor respiratory status and HR, D/C olmos?
[2016-11-28 05:24] LABS: ABSOLUTE NEUTROPHIL CT (ANC) 15.6 K/uL (1.4-9.0); BANDED NEUTROPHIL # 7.3 K/uL (0.0-0.1); BANDED NEUTROPHILS % 38 %; LYMPHOCYTE # 2.7 K/uL (0.8-4.0); LYMPHOCYTE % 14 %; SEGMENTED NEUTROPHIL # 8.3 K/uL (1.4-9.0); SEGMENTED NEUTROPHIL % 43 %
--- NOTE | 2016-11-28 15:47 | NUR ---
Significant Event: Patient alert and oriented x3. Denies numbness/tingling. No neuro deficits. Tele on- a fib, rates controlled. 1+ edema to legs. VSS, on room air. Lung sounds to L) lower lobe coarse, does cough up dark brown sputum. Knox patent and draining yellow urine. Scattered bruises noted. IV to R) FA, saline locked with intermittent antibiotics. IV to L) FA, saline locked. Follow up: Accucheks q 6 hours.
[2016-11-29 02:28] LABS: HEMATOCRIT 31.8 % (37.0-53.0); HEMOGLOBIN 10.3 g/dL (11.0-16.0); MCH 29.1 pg (27.0-34.0); MCHC 32.4 gm/dL (32.0-36.5); MCV 89.8 fl (83.0-98.0); MPV 10.6 fl (9.4-12.4); PLATELET COUNT 221 K/uL (150-450); RBC 3.54 M/uL (3.50-5.50); WBC 15.8 K/uL (4.0-11.0)
[2016-11-29 02:47] LABS: ANION GAP 11.2 (10.0-19.0); CREATININE 0.9 mg/dL (0.6-1.3); POTASSIUM 4.2 mMol/L (3.7-5.1); TOTAL BILIRUBIN 0.4 mg/dL (0.0-1.5); TOTAL PROTEIN 6.2 g/dL (6.0-8.4)
[2016-11-29 02:48] LABS: CALCIUM 7.4 mg/dL (8.5-10.5)
--- NOTE | 2016-11-29 03:28 | NUR ---
Significant Event: A/Ox3. Hypertensive and takes scheduled lopressor. Other VSS. Q6H accuchecks. Receives IV antibiotics through left and right forearm. Receives breathing treatments with respiratory therapy. 1A for transfers. Knox catheter patent. at bedside. Follow up:
[2016-11-29 03:46] LABS: ABSOLUTE NEUTROPHIL CT (ANC) 10.4 K/uL (1.4-9.0); BANDED NEUTROPHIL # 3.8 K/uL (0.0-0.1); BANDED NEUTROPHILS % 24 %; LYMPHOCYTE # 3.2 K/uL (0.8-4.0); LYMPHOCYTE % 20 %; MONOCYTE # 1.3 K/uL (0.0-1.0); SEGMENTED NEUTROPHIL # 6.6 K/uL (1.4-9.0); SEGMENTED NEUTROPHIL % 42 %
--- NOTE | 2016-11-29 17:04 | NUR ---
Significant Event: Patient alert and oriented x3. Denies numbness/tingling. No neuro deficits. Patient in a fib, rates 100-140's. All other VSS, on 1L O2. Will have a JETT with cardioversion tomorrow (11/30) at 1000. Permits signed already. Coughing fits throughout day, dark brown sputum noted. Coarse in left lungs and right lower lung. Knox patent and draining yellow urine. Lasix given x2 this shift, 4.7L urine off of patient. BM this shift. Scattered bruising noted. IV to upper R) arm, saline locked with intermittent antibiotics. Family at bedside. Follow up: Regular diet, accucheks q 6 hours. Lactate levels q 6 hours until normalizes. Next draw at 2029.
[2016-11-30 02:29] LABS: HEMATOCRIT 33.4 % (37.0-53.0); MCHC 32.9 gm/dL (32.0-36.5); MCV 88.1 fl (83.0-98.0); MPV 10.7 fl (9.4-12.4); PLATELET COUNT 275 K/uL (150-450); RBC 3.79 M/uL (3.50-5.50); RDW-CV 14.1 % (11.9-14.6); WBC 14.3 K/uL (4.0-11.0)
[2016-11-30 02:49] LABS: ANION GAP 10.7 (10.0-19.0); CALCIUM 7.7 mg/dL (8.5-10.5); CREATININE 0.8 mg/dL (0.6-1.3); POTASSIUM 3.7 mMol/L (3.7-5.1); TOTAL PROTEIN 6.4 g/dL (6.0-8.4)
[2016-11-30 02:50] LABS: TOTAL BILIRUBIN 0.5 mg/dL (0.0-1.5)
--- NOTE | 2016-11-30 03:03 | NUR ---
Significant Event: A/Ox3. Ambulates 1A with walker and gait belt. Remains in Afib and will have a JETT cardioversion this morning. Has been NPO since midnight. Q6h accuchecks and scheduled insulin administered. Patient states he was more tired than usual due to not sleeping much. Follows all commands without difficulty and denies numbness or tingling. Denies pain or discomfort. Knox catheter patent. Follow up:
[2016-11-30 03:51] LABS: ABSOLUTE NEUTROPHIL CT (ANC) 11.6 K/uL (1.4-9.0); BANDED NEUTROPHIL # 1.4 K/uL (0.0-0.1); BANDED NEUTROPHILS % 10 %; LYMPHOCYTE # 1.4 K/uL (0.8-4.0); LYMPHOCYTE % 10 %; MONOCYTE # 1.1 K/uL (0.0-1.0); SEGMENTED NEUTROPHIL # 10.2 K/uL (1.4-9.0); SEGMENTED NEUTROPHIL % 71 %
--- NOTE | 2016-11-30 08:14 | NUR ---
PT SCREENED D/T LOS. EST NEEDS: [id number] KCALS, 86-103 GM PROTEIN, 1 ML/KCAL FLUIDS. INTAKE HAS BEEN ADEQUATE. NO NUTRITION-RELATE DIAGNOSIS IDENTIFIED. WILL ASSIST NEEDED.
--- NOTE | 2016-11-30 17:18 | NUR ---
Significant Event: Patient alert and oriented x3. No neuro deficits. Tele on- NSR. Did have a JETT/ cardioversion this morning. Now in NSR. All other VSS, on 2L O2. Lung sounds on L) side coarse, lasix given today per MD order. Another order to give at 2000 tonight. Does cough up dark brown sputum at times. Coughing fits noted at times. Knox patent and draining yellow urine. Scattered bruises noted. IV to R) upper arm, saline locked with intermittent antibiotics. Follow up: Regular diet with accucheks q 6 hours.
--- NOTE | 2016-12-01 04:44 | NUR ---
Significant Event: ALERT/ORIENTED X3. NEURO INTACT. GENERALIZED WEAKNESS. SINUS RHYTHYM, HR 60S-70S, SBP 120S-130S. LUNGS CLEAR UPPERS, LEFT LOWER LOBES COARSE, RIGHT CLEAR/DIM. STRONG COUGH, OCCASIONALLY PRODUCTIVE WITH BROWN SPUTUM. WEANED TO 1L NC, SATS 93-96%. Q6H ACCUCHECKS 213 AT 2300 AND 114 AT 0500. LAST BM 11/28. 2850 OUT OF MENDEZ THIS SHIFT. IV LASIX AT 1999. NO PAIN. PIV TO RIGHT UPPER ARM SL'D. UP WITH 1A, GB AND WALKER. Follow up: CONTINUE TO MONITOR. NEEDS HEART CATH
[2016-12-01 06:06] LABS: HEMATOCRIT 33.2 % (37.0-53.0); HEMOGLOBIN 11.1 g/dL (11.0-16.0); MCH 29.7 pg (27.0-34.0); MCHC 33.4 gm/dL (32.0-36.5); MCV 88.8 fl (83.0-98.0); MPV 10.3 fl (9.4-12.4); PLATELET COUNT 289 K/uL (150-450); RBC 3.74 M/uL (3.50-5.50); RDW-CV 14.1 % (11.9-14.6); WBC 13.4 K/uL (4.0-11.0)
[2016-12-01 06:37] LABS: ANION GAP 9.7 (10.0-19.0); CALCIUM 7.7 mg/dL (8.5-10.5); CREATININE 0.8 mg/dL (0.6-1.3); MAGNESIUM 1.8 mg/dL (1.8-2.6); PHOSPHORUS 2.6 mg/dL (2.5-4.9); POTASSIUM 3.7 mMol/L (3.7-5.1); TOTAL PROTEIN 6.6 g/dL (6.0-8.4)
[2016-12-01 06:43] LABS: TOTAL BILIRUBIN 0.7 mg/dL (0.0-1.5)
[2016-12-01 07:14] LABS: ABSOLUTE NEUTROPHIL CT (ANC) 7.8 K/uL (1.4-9.0); BANDED NEUTROPHIL # 1.1 K/uL (0.0-0.1); BANDED NEUTROPHILS % 8 %; LYMPHOCYTE % 30 %; MONOCYTE # 1.2 K/uL (0.0-1.0); SEGMENTED NEUTROPHIL # 6.7 K/uL (1.4-9.0); SEGMENTED NEUTROPHIL % 50 %
[2016-12-01 10:34] LABS: HEMOGLOBIN 11.6 g/dL (11.0-16.0); MCH 28.6 pg (27.0-34.0); MCHC 32.2 gm/dL (32.0-36.5); MCV 88.9 fl (83.0-98.0); PLATELET COUNT 325 K/uL (150-450); RBC 4.05 M/uL (3.50-5.50); RDW-CV 14.1 % (11.9-14.6); WBC 14.5 K/uL (4.0-11.0)
[2016-12-01 10:46] LABS: INR - (THERAPEUTIC) 1.21 (0.92-1.07); PROTIME 12.7 SECONDS (9.8-11.4); PTT 34 SECONDS (25-32)
[2016-12-01 10:52] LABS: ALBUMIN 2.2 gm/dL (3.5-5.0); ANION GAP 10.4 (10.0-19.0); CALCIUM 8.2 mg/dL (8.5-10.5); POTASSIUM 3.4 mMol/L (3.7-5.1); TOTAL BILIRUBIN 0.7 mg/dL (0.0-1.5); TOTAL PROTEIN 7.2 g/dL (6.0-8.4)
[2016-12-01 11:03] LABS: ABSOLUTE NEUTROPHIL CT (ANC) 11.3 K/uL (1.4-9.0); BANDED NEUTROPHIL # 1.9 K/uL (0.0-0.1); BANDED NEUTROPHILS % 13 %; LYMPHOCYTE # 2.2 K/uL (0.8-4.0); LYMPHOCYTE % 15 %; MONOCYTE # 0.4 K/uL (0.0-1.0); SEGMENTED NEUTROPHIL # 9.4 K/uL (1.4-9.0); SEGMENTED NEUTROPHIL % 65 %
--- NOTE | 2016-12-01 11:35 | NUR ---
Significant Event:Patient is alert and oriented times three. PERRLA. CSM intact. Denies numbness or tingling, chest pain, or nausea/vomiting. Patient moves all extremities spontaneously and on command. Equal strength throughout. Does complain of feeling "a little short of breath". Lungs clear and diminished on RLL, LLL is coarse. SR on telemetry. VSS on 2L of oyxgen, attemping to wean from O2. Bowel sounds active, LG bm this AM. Knox catheter intact and draining large amounts of clear, yellow urine. Q6 hour accu checks, Carb Count with meals. No complaints of pain. Patient takes medications whole without difficulty. Peripheral IV to his right upper arm is saline locked with intermittent antibiotics. Patient tolerates a regular diet without difficulty. Follow up:Heart Cath tomorrow at noon.
--- NOTE | 2016-12-01 14:48 | NUR ---
Talked with patient, still planning on going home on discharge, denies concerns for me today. Rn Appeals will follow and assist with dc planning as needs identified.
--- NOTE | 2016-12-01 17:55 | NUR ---
Significant Event: TOOK OVER PT CARES FROM [id number]. NO CHANGES NOTED FROM PREVIOUS ASSESSMENTS. PT HAS BEEN RESTING COMFORTABLY IN CHAIR THIS AFTERNOON. DENIES ANY PAIN. IV TO R)UPPER ARM SALINE LOCKED. O2 AT 1-2 LITERS PER NASAL CANNULA. MENDEZ PATENT, DRAINING YELLOW URINE. TRANSFERS WITH 1-ASSIST/GAIT BELT WALKER. Q6H ACCUCHECKS, PLUS CARB COUNT WITH MEALS. HEART CATH PLANNED FOR TOMORROW ABOUT 1200. NPO AFTER MIDNIGHT. Follow up: PRE-OP CHECKLIST, HEART CATH GROIN/WRIST PREP, DAILY WEIGHT.
--- NOTE | 2016-12-02 04:46 | NUR ---
Significant Event: Patient is alert and oriented x 3. Denies pain, numbness, or tingling. Moves spontaneously and follows commands. PERRLA. Equal strength. Pulses palpable. Denies chest pain or dizziness. SR. VSS. Afebrile. On 2L O2 via NC. Knox intact draining yellow urine without complications. Bowel sounds active. No BM this shift. Last BM 12/01. Good appetite-eats slowly. Q6H accucheks with mild SSI and carb count with meals. PIV to right upper arm SL with no complications. Started a 2nd IV to left forearm that is SL with good blood return. Patient is to have heart cath today around noon. Will start IVF at 0600. Took metoprolol with sip of water this morning. NPO since midnight. Permits need signed. Takes medications whole without difficulties. Calf SCDs in place. Also on Lovenox--to be held this AM. Surgical bath done and right wrist and groin prepped. Follow up: NPO, heart cath around noon, Q6H accucheks, nickolas
[2016-12-02 05:07] LABS: HEMATOCRIT 35.6 % (37.0-53.0); HEMOGLOBIN 11.9 g/dL (11.0-16.0); MCH 29.5 pg (27.0-34.0); MCHC 33.4 gm/dL (32.0-36.5); MCV 88.3 fl (83.0-98.0); MPV 10.2 fl (9.4-12.4); PLATELET COUNT 313 K/uL (150-450); RBC 4.03 M/uL (3.50-5.50); RDW-CV 14.1 % (11.9-14.6); WBC 11.7 K/uL (4.0-11.0)
[2016-12-02 05:25] LABS: ALBUMIN 2.1 gm/dL (3.5-5.0); ANION GAP 10.2 (10.0-19.0); BLOOD UREA NITROGEN 19 mg/dL (6-24); CALCIUM 8.2 mg/dL (8.5-10.5); CHLORIDE 103 mMol/L (96-110); CO2 28 mMol/L (22-32); CREATININE 0.7 mg/dL (0.6-1.3); MAGNESIUM 1.9 mg/dL (1.8-2.6); PHOSPHORUS 2.9 mg/dL (2.5-4.9); POTASSIUM 4.2 mMol/L (3.7-5.1); SODIUM 137 mMol/L (135-145)
[2016-12-02 05:41] LABS: ABSOLUTE NEUTROPHIL CT (ANC) 8.1 K/uL (1.4-9.0); BANDED NEUTROPHIL # 1.9 K/uL (0.0-0.1); BANDED NEUTROPHILS % 16 %; LYMPHOCYTE # 2.1 K/uL (0.8-4.0); LYMPHOCYTE % 18 %; MONOCYTE # 0.7 K/uL (0.0-1.0); SEGMENTED NEUTROPHIL # 6.2 K/uL (1.4-9.0); SEGMENTED NEUTROPHIL % 53 %
--- NOTE | 2016-12-02 17:11 | NUR ---
Significant Event: Patient alert and oriented. Heart cath cancelled for today, re scheduled for Wednesday at [address] Duque. VSS on 1L. Lungs slightly coarse. Knox patent and draining clear urine. Transfers 1A with GB. Carb count increased to 3 units/15 grams. Saline lock to R) upper arm and L) lower arm. at bedside until this afternoon, will be back tomorrow evening. Follow up: NPO at midnight on 12/04.
--- NOTE | 2016-12-03 02:29 | NUR ---
TRANSFERED TO PCU AT 0215. RECEIVING RN WAS CHALINO. PATIENT IS A/O x3. ONE ASSIST W/ WALKER AND GAITBELT. 1L O2 VIA NC. CLEAR AND DIM UPPERS, SLIGHTLY COARSE BILAT LOWERS. INDWELLING MENDEZ CATH. BM AT 0145. BRUISING ON SKIN THROUGHOUT BODY. R) FOREARM IV AND L) FOREARM IV, NO COMPLICATIONS. VSS. ACCU CHECKS Q6HS.
--- NOTE | 2016-12-03 04:50 | NUR ---
Patient A/Ox3. VSS on RA. Has been in bed for me, ICU says he is a one assist with walker gaitbelt. Lungs slightly course in bases, clear/diminished in upper lobes. Bowel sounds present, BM HS shift. Knox 925out. No edema. IV to bilateral arms, saline locked. No complaints of pain,nausea, or vomiting. Heart cath scheduled for Wednesday. NPO 12/04 and See IV fluid order prior to cath.
[2016-12-03 05:39] LABS: BASOPHIL # 0.1 K/uL (0.0-0.2); BASOPHIL % 0.5 %; EOSINOPHIL # 0.5 K/uL (0.0-0.5); EOSINOPHIL % 3.3 %; HEMATOCRIT 36.9 % (37.0-53.0); HEMOGLOBIN 12.2 g/dL (11.0-16.0); IMMATURE GRANULOCYTE # 0.5 K/uL (0.0-0.3); IMMATURE GRANULOCYTE % 3.9 %; LYMPHOCYTE % 14.7 %; MCH 29.3 pg (27.0-34.0); MCHC 33.1 gm/dL (32.0-36.5); MCV 88.5 fl (83.0-98.0); MONOCYTE # 1.2 K/uL (0.0-1.0); MONOCYTE % 8.3 %; NEUTROPHIL # (ANC) 9.6 K/uL (1.4-9.0); NEUTROPHIL % 69.3 %; NRBC % 0 /100WBC (0-0.00); RBC 4.17 M/uL (3.50-5.50); RDW-CV 14.4 % (11.9-14.6); WBC 13.8 K/uL (4.0-11.0)
[2016-12-03 05:43] LABS: PLATELET COUNT 390 K/uL (150-450)
[2016-12-03 05:54] LABS: ALBUMIN 2.2 gm/dL (3.5-5.0); ANION GAP 11.7 (10.0-19.0); CALCIUM 8.3 mg/dL (8.5-10.5); CREATININE 0.9 mg/dL (0.6-1.3); MAGNESIUM 1.9 mg/dL (1.8-2.6); PHOSPHORUS 2.5 mg/dL (2.5-4.9); POTASSIUM 4.7 mMol/L (3.7-5.1)
[2016-12-03 05:58] LABS: ALBUMIN 2.1 gm/dL (3.5-5.0); TOTAL BILIRUBIN 0.7 mg/dL (0.0-1.5); TOTAL PROTEIN 7.4 g/dL (6.0-8.4)
--- NOTE | 2016-12-03 14:57 | NUR ---
Spoke with patient regarding discharge plans. He hopes to go home tomorrow or Wednesday. He has been using a walker here and says his has gotten him a walker to use at home. He does not anticipate discharge needs at this time. Will follow.
--- NOTE | 2016-12-03 16:00 | NUR ---
SIGNIFICANT EVENT: Pt. alert and oriented x3. Walks with GB/walker 1 assist. Up to chair and walked with therapy twice this shift. O2 90-95% RA. Therapy reported O2 dropped to 85% when walked so used O2 tank when ambulating outside of room. 1 BM this AM, soft/brown. Has a olmos cath. in place. 2200 out this shift, on lasix 40mg IVP qday. To go for heart cath Wednesday. NPO after midnight. Hold lovenox per order on emar Wednesday AM. 2 IVs saline locked, one in each arm. Both flush well. Plan is d/c home to [place] where he lives independently after heart cath. Wednesday. Cooperative with cares. FOLLOW UP: Heart cath tomorrow. Continue with plan of care.
--- NOTE | 2016-12-04 18:41 | NUR ---
Significant Event: A/Ox3. VSS. Room air. IVs saline locked. R) groin heart cath today. No intervention and patient was a CABG consult. Dr. Valdovinos came and evlauated patient. At this time states due to the pneomonia he is not a canidate for the open heart. Tomorrow patient will have a CT of lungs to reevaluate pnenomia. No complications with R) groin. Dressing C/d/i. Patient is now off besrest. Knox discontinued at 1700. No post void yet. 1250ml of urine out this shift.
--- NOTE | 2016-12-05 03:46 | NUR ---
Significant Event: A/0X3. TUSCARORA. RESTED IN BED. TURNS SELF. AFEBRILE. VSS ON RA. DENIES CHEST PAIN OR ANY PAIN. IV TO R) UPPER ARM/L) FA SL. GROIN SOFT. NO S/S OF BRUISING, BLEEDING, OR HEMATOMA. CSM WNL.DRESSING C/D/I. VOIDED 700+. BM X1. CT SCAN OF THE LUNGS THIS AM. Follow up: CONTINUE WITH PLAN OF CARE.
[2016-12-05 05:36] LABS: ALBUMIN 2.1 gm/dL (3.5-5.0); ANION GAP 11.1 (10.0-19.0); CALCIUM 8.3 mg/dL (8.5-10.5); CREATININE 0.8 mg/dL (0.6-1.3); MAGNESIUM 2.1 mg/dL (1.8-2.6); PHOSPHORUS 2.7 mg/dL (2.5-4.9); POTASSIUM 5.1 mMol/L (3.7-5.1)
[2016-12-05] MEDS ORDERED: NOVOLOG100 UNIT/M SUB-Q (12:51)
[2016-12-05] MEDS ORDERED: LEVAQUIN 750 M750 MG PO (12:52)
--- NOTE | 2016-12-05 12:53 | NUR ---
Pt alert and oriented x3. at bedside. Denies pain thus far this shift. PT groin cath site soft,non-tender. Voiding adequately since olmos cath removal last evening. Pt to see next week for Cabg consult. VS stable. Pt to be dismissed to home today.
[2016-12-05] MEDS ORDERED: LOPRESSOR50 MG PO (12:56)
[2016-12-05] MEDS ORDERED: NITROSTAT0.4 MG SL (12:58)
--- NOTE | 2016-12-05 15:53 | NUR ---
Dismissal information covered with patient and family. They verbalized understanding. Pt taken to awaiting car in [address].
== END 2016-12-05 14:20 | disposition disaster alternative care site (69) | DRG 871 ==
LOC: GICU 13:07 → GPCU 13:07 → GICU 17:52 → GPCU 12-03 02:21
PROVIDERS: Internal Medicine; Internal Medicine Cardiovascular Disease; Internal Medicine Interventional Cardiology; ADMIT Internal Medicine
PROC: 5A2204Z Restoration of Cardiac Rhythm, Single (ICD-10-PCS; 2016-11-30)
PROC: B211YZZ Fluoroscopy of Multiple Coronary Arteries using Other Contrast (ICD-10-PCS; principal; 2016-12-04)
PROC: 4A023N7 Measurement of Cardiac Sampling and Pressure, Left Heart, Percutaneous Approach (ICD-10-PCS; principal; 2016-12-04)
DX: A41.9 Sepsis, unspecified organism (principal); J18.9 Pneumonia, unspecified organism; J96.01 Acute respiratory failure with hypoxia; I21.4 Non-ST elevation (NSTEMI) myocardial infarction; R65.21 Severe sepsis with septic shock; I50.21 Acute systolic (congestive) heart failure; N17.9 Acute kidney failure, unspecified; I11.0 Hypertensive heart disease with heart failure; E11.9 Type 2 diabetes mellitus without complications; D64.9 Anemia, unspecified; J84.10 Pulmonary fibrosis, unspecified; I48.91 Unspecified atrial fibrillation; E78.5 Hyperlipidemia, unspecified; Z87.891 Personal history of nicotine dependence; Z79.01 Long term (current) use of anticoagulants; Z79.4 Long term (current) use of insulin; Z77.090 Contact with and (suspected) exposure to asbestos; I27.2 Other secondary pulmonary hypertension; Z79.82 Long term (current) use of aspirin; J44.9 Chronic obstructive pulmonary disease, unspecified; I25.10 Atherosclerotic heart disease of native coronary artery without angina pectoris; I73.9 Peripheral vascular disease, unspecified
CPT/HCPCS: A9270; C1769; C9113; J0583; J1644; J1650; J1940; J1956; J2250; J2405; J2543; J3010; J3370; J7030; J7040; J7050; J7060